=== PATIENT | female | born 1970 | race Caucasian/White ===

== ENCOUNTER 2023-11-21 20:05 | Emergency (ER) | payer BC ==
[2023-11-21 20:16] VITALS: TEMP 97.9; BMI 23.0
[2023-11-21 21:53] LABS: BASO % 0.7 % (0-2.0); EOS % 0.8 % (0-4.5); HEMATOCRIT 39.2 % (32.4-45.2); HEMOGLOBIN 13.3 GM/dL (10.7-15.3); MCH 31.3 pg (25.7-33.7); MCHC 33.8 g/dl (32.0-36.0); MEAN CELL VOLUME 92.4 fl (80-96); MEAN PLT VOLUME 8.1 fl (7.5-11.1); MONO % 10.5 % (3.8-10.2); PLATELET COUNT 213 10^3/uL (134-434); RBC 4.24 M/mm3 (3.60-5.2); RDW 12.6 % (11.6-15.6); WHITE BLOOD COUNT 4.9 K/mm3 (4.0-10.0)
[2023-11-21 22:14] LABS: POTASSIUM 3.8 mmol/L (3.5-5.1)
[2023-11-21 22:15] LABS: CALCIUM 9.1 mg/dL (8.5-10.1)
[2023-11-21 22:16] LABS: ALBUMIN 3.6 g/dl (3.4-5.0); BLOOD UREA NITROGEN 16.9 mg/dL (7-18)
[2023-11-21 22:19] LABS: CREATININE 0.7 mg/dL (0.55-1.3)
[2023-11-21 22:21] LABS: BILIRUBIN,TOTAL 0.6 mg/dL (0.2-1); TOT PROT 6.6 g/dl (6.4-8.2)
[2023-11-21 23:14] VITALS: BP 134/92; PULSE 92; RESP 20
== END 2023-11-21 23:13 | disposition home or self-care (01) ==
LOC: JER 20:05
DX: J18.9 Pneumonia, unspecified organism (principal); R05.9 Cough, unspecified; R07.2 Precordial pain; R06.02 Shortness of breath
CPT/HCPCS: 36415; 71046-TC-FY; 80053; 85025; 99284-25

== ENCOUNTER 2024-09-10 06:44 | Emergency (ER) | payer BC ==
[2024-09-10 06:57] VITALS: PULSE 108; RESP 18; TEMP 98.3; BMI 21.2
[2024-09-10 07:48] VITALS: BP 129/94
== END 2024-09-10 07:49 | disposition home or self-care (01) ==
LOC: JER 06:44
DX: R21 Rash and other nonspecific skin eruption (principal); B02.9 Zoster without complications
CPT/HCPCS: 99283-25